=== PATIENT | male | born 1975 | race Caucasian/White ===

== ENCOUNTER 2017-02-16 04:14 | Emergency (ER) | payer BC ==
[~2017-02-16] VITALS: Ht 172.7 cm; Wt 77.1 kg
--- NOTE | 2017-02-16 04:25 | NUR ---
PT BIB SELF AMBULATORY TO ER BED 6, PT C/O ABD WITH N/V/D SINCE 10 PM LAST NIGHT. PT PLACED IN GOWN AND ON VS/CARDIAC MACHINE. PT VSS/RESP EVEN UNLABORED/NAD NOTED/SKIN WARM AND DRY/AO X4. AWAITING MD MCCOY.
[2017-02-16] MEDS ORDERED: MORPHINE SULFATE INJ 10 MG/ML DISP.SYRIN ONE (05:09)
[2017-02-16] MEDS ORDERED: ONDANSETRON HCL/PF 4 MG/2 ML VIAL ONE (05:09)
[2017-02-16] MEDS ORDERED: MORPHINE SULFATE INJ 2 MG/ML DISP.SYRIN IV ONE (05:30)
[2017-02-16] MEDS ORDERED: ONDANSETRON HCL/PF 4 MG/2 ML VIAL IVP ONE (05:30)
[2017-02-16] MEDS ORDERED: IV NS 0.9% 1,000 ML BAG IV ONE (05:30)
--- NOTE | 2017-02-16 06:11 | NUR ---
AT BEDSIDE SPEAKING WITH PT.
--- NOTE | 2017-02-16 06:25 | NUR ---
IV removed. Catheter intact and site benign. Pressure and 4x4 applied to site. No bleeding noted. Patient discharged with to home in stable condition. Written and verbal after care instructions given, pt instructed not to drive. Patient verbalizes understanding of instruction. Pt ambulatory with a steady gait.
[2017-02-16 06:27] VITALS: BP 150/97
== END 2017-02-16 06:28 | disposition home or self-care (01) ==
LOC: ER 04:17
DX: K52.9 Noninfective gastroenteritis and colitis, unspecified (principal)
CPT/HCPCS: 96361; 96374; 96375; 99284; A4606; J2270; J2405; J7030; Z7610

== ENCOUNTER 2019-08-06 20:27 | Emergency (ER) | payer BC, OTHER ==
[~2019-08-06] VITALS: Ht 175.3 cm; Wt 83.9 kg
--- NOTE | 2019-08-06 20:30 | NUR ---
PT BIBSELF C/O L EAR BUZZING SINCE THIS MORNING. PT TOOK CAFFEINE SUPPLEMENTS. UPON ASSESSENT PT ABLE TO MOVE ALL EXTREMITIES, NO NEURO DEFICIT. PLACED ON MONITOR AND PULSE OX. AT BEDSIDE FOR EVAL. NO ACUTE DISTRESS NOTED. VSS. AWAITING ORDERS.
--- NOTE | 2019-08-06 20:46 | NUR ---
OMAYRA TO [place]
--- NOTE | 2019-08-06 21:08 | NUR ---
PT IN BED RESTING. VSS.
--- NOTE | 2019-08-06 21:48 | NUR ---
Patient discharged to home in stable condition. Written and verbal after care instructions given. Patient verbalizes understanding of instruction and RX. Pt ambulated with steady gait.
[2019-08-06 21:50] VITALS: BP 131/91
== END 2019-08-06 21:50 | disposition home or self-care (01) ==
LOC: ER 20:35
DX: H66.92 Otitis media, unspecified, left ear (principal); I10 Essential (primary) hypertension
CPT/HCPCS: 70450-TC